=== PATIENT | female | born 1940 | race African-American/Black ===

== ENCOUNTER → 2017-05-05 | Outpatient (CLI) | payer OTHER, BC ==
[~2017-05-05] MED LIST: ASPIRIN325 PO; AUGMENTIN 875-1 EACH PO; AUGMENTIN 875875 MG PO; COLACE100 MG PO; COMPAZINE10 M1; COMPAZINE10 MG PO; DEXILANT60 MG PO; EFFEXOR75 MG; FENTANYL 1100 MCG/HR TRANSDERM; FENTANYL PA12 MCG/H1 TP; FISH OIL 1,001000 M2 PO; FLAGYL500 MG PO; FLEXERIL; FOLIC ACID1 MG; FOLIC ACID1 MG PO; HYDROXYCHLOROQ200 M1; IMURAN 50MG TAB50 M1 PO; LIDOCAINE 22 %/30 GM; MAGNESIUM OXID200 MG PO; MEGA MULTI FOR1 EACH PO; METHOTREXATE 22.5 M1 PO; MIRALAX17 GM PO; PHENERGAN25 MG RE; POTASSIUM20 PO; PREDNISOLON5 MG/5 ML; PROTONIX40 M2 PO; REFRESH CELLUVI1 APP OPHTHALMIC; REMICADE 1100 MG/VIA; TESSALON200 MG; TOBI PODHALER28 M1; TRIAMCINOLONE10 G1; TRIBENZOR 40-11 EAC1 PO; TYLENOL325 MG PO; VENLAFAXIN75 MG/1 T2 PO; VITAMIN D250000 UNIT PO; VOLTAREN75 MG; XANAX 0.25 MG0.25 MG; XANAX 0.25 MG0.25 MG PO
--- NOTE | ~2017-05-05 | S ---
[facility] [place] [address] SURGICAL PATH RPT PROCEDURE Name: BELEM VORA Room #: REG PATRICIA Gonzales.#: [id number] Admission: 05/05/17 Date of : 36 Discharge: Report #: [id number] Path Case #: [id number] PATHOLOGY REPORT COLLECTION DATE: 05/05/2017 RECEIVED DATE: 05/05/2017 SUBMITTING PHYS: Dr. Dudley Tyler OTHER PHYS: Dr. Dylan Chase SPECIMEN(S) RECEIVED: A.Small bowel B.Mid transverse colon polyp C.Random colon * * * * * * * * * * * * FINAL DIAGNOSIS: A. Small bowel mucosa, small bowel, endoscopic biopsy: - No diagnostic abnormalities present. B. Polyp, mid transverse colon, endoscopic biopsy: - Tubular adenoma. - Negative for high-grade dysplasia. C. Large intestinal mucosa, random colon, endoscopic biopsy: - Non-specific changes (please see comment). - Negative for dysplasia or malignancy. COMMENT: C. Examination shows a rare focus of cryptitis within an occasional crypt. The lamina propria cellularity is mixed with eosinophils, lymphocytes, as well as plasma cells. There is no increase in intraepithelial lymphocytes, or thickening of the subepithelial collagen layer present. There are no viral inclusions, granulomata, or parasitic organisms present. Overall findings are nonspecific, and may be due to a resolving acute self-limited episode of colitis, as well as medication induced colitis in addition to bowel preparation. Please correlate clinically. There is no dysplasia or malignancy present. (IUV:pit; 05/06/2017) PATHOLOGIST: Rayna Rosas M.D. REPORT ELECTRONICALLY SIGNED BY: Rayna Rosas M.D. DATE/TIME: 05/06/2017 13:15 * * * * * * * * * * * * GROSS PATHOLOGY: A. Received in formalin labeled "Belem Vora, BX small bowel," are 4 segments of chun soft tissue measuring 1.8 x 0.9 x 0.[address] [address] SURGICAL PATH RPT PROCEDURE Name: BELEM VORA Room #: REG [facility].#: [id number] Admission: 05/05/17 Date of : 36 Discharge: Report #: [id number] Path Case #: [id number] aggregate dimensions and ranging from 0.4 to 0.6 cm in maximum dimension. The specimen is submitted entirely in cassette A1. B. Received in formalin labeled "Belem Vora, polyp at mid transverse colon," is a segment of chun soft tissue measuring 0.3 cm in maximum dimension. The specimen is submitted entirely in cassette B1. C. Received in formalin labeled "Belem Vora, BX, random colon," are 6 segments of chun soft tissue measuring 1.6 x 0.9 x 0.3 cm in aggregate dimensions and ranging from 0.2 to 0.5 cm in maximum dimension. The specimen is submitted entirely in cassette C1. (TSD; 05/05/2017) CLINICAL HISTORY: Pre-OP DX: Dysphagia Post-OP DX: Gastritis, small hiatal hernia, esophageal ring, colon polyp, diarrhea INITIAL CPT CODE(S): A; 31464 B; 66547 C; 64940 Professional services performed by [facility] at [facility] [address], [place] [address] Technical services performed by [facility] at [address] [place] [address], [address], [place] [address]. [facility] [address] [place] [address] PHONE: [phone] DIRECTOR: Maxi Gonzalez M.D. * * * END OF REPORT * * *
--- NOTE | ~2017-05-05 | P ---
[facility] [place] [address] PROCEDURE REPORT Name: BELEM VORA [id number] Admission: 05/05/17 Attend Phys: Dudley Tyler MD Discharge: Date of : 38 Report #: [id number] THIS REPORT FOR: //name// CC: Dudley SAMSON BOX Dylan Box BRIEF HISTORY: The patient is a 76-year-old woman with chronic diarrhea. She also has had some vague upper abdominal pain, history of ulcer disease. In addition, she has recurrent solid food dysphagia. PREOPERATIVE DIAGNOSES: 1. Diarrhea. 2. Abdominal pain. 3. Dysphagia. POSTOPERATIVE DIAGNOSES: 1. Diffuse gastritis without ulcer. 2. Small hiatus hernia. 3. Proximal esophageal ring. MEDICATIONS: Deep sedation with propofol for anesthesia. SPECIMEN: Small bowel biopsies to rule out celiac disease. ESTIMATED BLOOD LOSS: 3 mL. PROCEDURE: EGD with biopsy and Sharp dilation. FINDINGS: Prior to propofol sedation, procedure of upper endoscopy was discussed with the patient as well as potential risks and its complications. She indicates she understands and desires to proceed. DESCRIPTION OF PROCEDURE: With the patient in left lateral decubitus position, the [employer] video endoscope was inserted in the cervical esophagus under direct vision without difficulty. Examination of this organ to its entire length revealed normal esophageal mucosa down to the squamocolumnar junction. The squamocolumnar junction was inspected and noted to be unremarkable. No ulcers or erosions were seen. No evidence of Quevedo's mucosa. No strictures or masses were seen. Intermittently, a 2 cm sliding type hiatus hernia was seen. Mucosa and hernia was normal. Scope was advanced in the stomach, was examined on end view as well as retroflexed views. She does have an erythematous antral gastritis. Previous biopsies were negative for H. pylori and they were not repeated today. No ulcers were seen today. Upon retroflexion, the hernia was seen, but no other abnormalities were identified. The pylorus, duodenal bulb and ____ sweep were inspected and noted to be within normal limits. Due to her diarrhea, multiples biopsies were obtained to evaluate for celiac disease. At [facility] [address] [place] [address] PROCEDURE REPORT Name: BELEM VORA Room #: REG [facility] Mirian#: [id number] Admission: 05/05/17 Attend Phys: Dudley Tyler MD Discharge: Date of : 38 Report #: [id number] that point, scope was withdrawn and careful circumferential views confirmed the above finding. Upon slow withdrawal of the scope in the proximal esophagus, a mild proximal esophageal ring was seen. We subsequently dilated with passage of 52-Wolof Sharp dilator. CONDITION OF THE PATIENT UPON DISCHARGE: Following procedure, the patient drowsy and prepared for flexible sigmoidoscopy. INSTRUCTIONS TO THE PATIENT AND FAMILY AT THE TIME OF DISCHARGE: She may use her Nexium as needed for control of reflux symptoms. We can dilate her on an as needed basis due to dysphagia and a ring. We will follow up on biopsies and make further recommendations. Proceed with flexible sigmoidoscopy and biopsy at this time. <ELECTRONICALLY SIGNED> By: Dudley Tyler MD 05/05/17 1902 [id number] 1104 Dudley Tyler MD /nt
--- NOTE | ~2017-05-05 | P ---
[facility] [place] [address] PROCEDURE REPORT Name: BELEM VORA Room #: REG [facility].#: [id number] Admission: 05/05/17 Attend Phys: Dudley Tyler MD Discharge: Date of : 38 Report #: [id number] THIS REPORT FOR: //name// CC: Dudley Chase MD BRIEF HISTORY: The patient is a 76-year-old woman with history of collagenous colitis with worsening diarrhea. PREOPERATIVE DIAGNOSIS: Recurrent diarrhea. POSTOPERATIVE DIAGNOSES: 1. Diminutive polyp, mid transverse colon. 2. Diarrhea. MEDICATIONS: Deep sedation with propofol per anesthesia. SPECIMENS: 1. Polyp from mid ascending colon. 2. Random biopsy of the colon to rule out colitis. ESTIMATED BLOOD LOSS: 3 mL. PROCEDURE: Flexible sigmoidoscopy to mid transverse colon with biopsy. FINDINGS: Prior to propofol sedation, the procedure of flexible sigmoidoscopy discussed with the patient as well as potential risks, benefits, and complications. She indicates she understands and desires to proceed. With the patient in left lateral decubitus position, digital examination was completed, which revealed without abnormalities. Subsequently, [employer] video colonoscope was introduced in the rectum and advanced under direct vision. The scope was advanced to what I believe was the mid transverse colon. Our intentions today were to take biopsies to evaluate for her diarrhea. In the mid transverse colon, a diminutive polyp was seen and removed by biopsy. At that point, the scope was slowly withdrawn and careful circumferential views were obtained. The patient did not do a complete colon prep and therefore, the prep was limited and there were pools of liquid stool around. Additional polyps could not be totally excluded because of prep limitations. However, the prep was adequate for our intentions today, which is to obtain biopsies to evaluate for microscopic colitis. Multiple areas of mucosa were seen and visualized and noted to be within normal limits. Inflammatory changes were not seen. Multiple random biopsies were obtained. Scope was withdrawn in the rectum. Upon retroflexion, no abnormalities were seen. Scope was withdrawn. The patient tolerated the procedure well. [address] [address] PROCEDURE REPORT Name: DIONYBELEM Room #: REG [facility].#: [id number] Admission: 05/05/17 Attend Phys: Dudley Tyler MD Discharge: Date of : 36 Report #: [id number] CONDITION OF THE PATIENT UPON DISCHARGE: Following procedure, the patient drowsy and will be discharged home when fully ambulatory. INSTRUCTIONS TO THE PATIENT AND FAMILY AT THE TIME OF DISCHARGE: No inflammatory changes were seen. We will follow up on the path report and make further recommendations. Since this was not a complete exam and her last full colon was done about 2 years ago, I would have her return in 3 years for followup colonoscopy. We will follow up on biopsies obtained today and make further recommendations as needed. <ELECTRONICALLY SIGNED> By: Dudley Tyler MD 05/05/17 1902 [id number] [id number] Dudley Tyler MD /laly
== END | disposition home or self-care (01) ==
LOC: GI 07:58
DX: K52.831 Collagenous colitis (principal); D12.3 Benign neoplasm of transverse colon; K29.70 Gastritis, unspecified, without bleeding; K44.9 Diaphragmatic hernia without obstruction or gangrene; K22.2 Esophageal obstruction

== ENCOUNTER 2017-05-18 18:20 | Emergency (ER) | payer OTHER, BC ==
[~2017-05-18] VITALS: Ht 160 cm; Wt 58.5 kg
[2017-05-18 19:38] LABS: HEMOGLOBIN 10.8 gm/dL (12.0-15.0); MCH 25.4 pg (26.0-34.0); MCHC 32.7 g/dL (28.0-37.0); MCV 77.5 fL (80.0-100.0); RBC 4.25 mil/uL (4.20-5.00); RDW 15.5 % (10.5-14.5); WBC 3.9 thou/uL (4.0-11.0)
[2017-05-18 19:45] LABS: CALCIUM 9.6 mg/dL (8.5-10.1); CREATININE 1.1 mg/dL (0.6-1.0); POTASSIUM 3.6 mmol/L (3.5-5.1)
[2017-05-18 20:01] VITALS: BP 165/76
== END 2017-05-18 20:00 | disposition home or self-care (01) ==
LOC: ER 18:20
PROVIDERS: Emergency Medicine
DX: N93.9 Abnormal uterine and vaginal bleeding, unspecified (principal); I10 Essential (primary) hypertension; M06.9 Rheumatoid arthritis, unspecified; Z86.73 Personal history of transient ischemic attack (TIA), and cerebral infarction without residual deficits; Z88.1 Allergy status to other antibiotic agents; Z88.5 Allergy status to narcotic agent; Z88.2 Allergy status to sulfonamides; Z88.8 Allergy status to other drugs, medicaments and biological substances

== ENCOUNTER → 2019-05-05 | Outpatient (CLI) | payer OTHER, BC ==
[~2019-05-05] VITALS: Ht 165.1 cm; Wt 61.2 kg
[~2019-05-05] MED LIST changes: +BENICAR20 MG PO; +BENZONATATE200 MG PO; +DULOXETINE HCL60 MG PO; +EFFEXOR XR150 MG PO; +FUROSEMIDE 20 M20 MG PO; +HYDROCODON-ACE1 EAC8 PO; +KLOR-CON-EF 2525 ME1 PO; +MICROZIDE12.5 MG PO; +OLMSRTN-AMLDPN1 EACH PO; +PERIDEX15 ML PO; -POTASSIUM20 PO; +PREDNISONE ACETATE OPHTHALMIC; +PROAIR DIGIHAL90 MCG INH; +REMICADE 1100 MG/VIA IV; +VOLTAREN GEL 1100 G1 TOP
[2019-05-05 08:28] VITALS: BP 129/70
--- NOTE | 2019-05-05 09:06 | NUR ---
Pain Clinic Assessment: 1. History of Osteoarthritis: NONE History of Rheumatoid Arthritis: B/L HANDS 2. Height: 5 ft. 5 in. 165.1 cm. Weight: 135.0 lb. oz. 61.236 kg. Patient's BMI: 22.5 3. Vital Signs: BP: 129/70 Pulse: 80 Resp: 14 Temp: 02 Sat: 100 ECG Mon: 4. Pain Intensity: 10 5. Fall Risk: Dizziness: Y Needs help standing or walking: Y Fallen in the last 3 months: N Fall risk comments: 6. Patient on Blood Thinner: None 7. History of Hypertension: Y 8. Opioid Therapy greater than 6 weeks: Opiate Contract Signed: 9. Risk Assessment Tool Provided: LOW 10. Functional Assessment Tool: / 11. Recreational Drug Use: Never Drug Type: Tobacco Use: Never Smoker Tobacco Type: Amount or Packs/day: How Many Years: Alcohol Use: No Frequency: Quant:
--- NOTE | 2019-05-10 19:28 | HPC ---
[facility] [place] [address] [place] [address] PAIN MANAGEMENT CONSULTATION Name: BELEM VORA Room #: REG PATRICIA Gonzales.#: [id number] Admission: 05/05/19 Attend Phys: Joy Isaac MD Discharge: Date of : 36 Report #: [id number] THIS REPORT FOR: //name// CC: Dylan Isaac DATE OF SERVICE: 05/05/2019 PRIMARY CARE PHYSICIAN: Dylan Chase MD CHIEF COMPLAINT: Left leg pain. "I have had epidural injections in the past." HISTORY: The patient is an 78-year-old female who has been referred to the pain clinic for evaluation of back and leg pain. States that she has had problems with her back and has undergone epidural steroid injections in the past. She notes that over the past month, she has had a worsening of pain and discomfort. Epidural steroid injections have been beneficial. She has been having more pain. She is having difficulty walking, difficulty with sleep. The left side is most problematic. She awakens from sleep. She is having pain that radiates down into the feet. The left side is most problematic. The patient has a history of rheumatoid arthritis. She does receive infliximab infusions. The patient has received epidural steroid injections from another physician. He has moved. The distance has gotten too great. She would like to follow up here at [facility]. ALLERGIES: CODEINE. CURRENT MEDICATIONS: Dexilant 60 mg, mwnjuwcdvf-cgdtzhfomg-pjgv 20/5/12.5, hydrocodone 7.5 mg q. 6 hours p.r.n., Lasix 20 mg, Duloxetine 60 mg, Remicade 100 mg intravenous as instructed, prednisone ophthalmic drops 4 times daily, Voltaren gel 1% 4 times daily to the affected areas, Effexor XR 150 mg, Compazine 10 mg 4 times daily p.r.n., albuterol inhaler p.r.n. shortness of breath, ophthalmic drops Refresh Celluvisc as needed, folic acid 1 mg, Imuran 50 mg b.i.d., alprazolam 0.25 mg t.i.d. p.r.n., vitamin D 50,000 units weekly, Klor-Con, EF 20 mEq. PAST MEDICAL HISTORY: Hypertension, CVA in 2008, acid reflux, rheumatoid arthritis. PAST SURGICAL HISTORY: The patient has had surgery on her hands as well as surgery on her feet. SOCIAL HISTORY: She is retired, she is . REVIEW OF SYSTEMS: Generally good health, headaches, chronic sinus problems, shortness of breath, loss of appetite, peptic ulcer, fatigue and weakness, [address] [address] PAIN MANAGEMENT CONSULTATION Name: BELEM VORA Room #: REG Flavia Vela#: [id number] Admission: 05/05/19 Attend Phys: Joy Isaac MD Discharge: Date of : 36 Report #: [id number] stroke, memory loss/confusion, nervousness, depression, insomnia, anemia. LABORATORY DATA: No new laboratory values are available at the time of our interview. PAIN CLINIC ASSESSMENT AND PQRS: 1. History of osteoarthritis. The patient is not being treated for osteoarthritis. She is being treated for rheumatoid arthritis, which is problematic in both hands and swelling in her feet. 2. Height 5 feet 5 inches, weight 135 pounds, BMI is 22.5. 3. Vital signs: Blood pressure 129/70, pulse 80, respiratory rate 14, room air saturation is 100%. 4. Pain intensity 03/18. 5. Fall risk. The patient has not fallen in the last 3 months. 6. Blood thinner. The patient is not on a blood thinning medication. 7. Hypertension. The patient is being treated for hypertension. 8. Opioids greater than 6 weeks. The patient received medication from one source, pain clinic. 9. Risk assessment tool, low. 10. Functional assessment tool, 56/70. 11. Recreational drug use: The patient denies. 12. Tobacco: The patient has never smoked. 13. Alcohol. The patient denies use of alcoholic beverages. PHYSICAL EXAMINATION: GENERAL: The patient is a well-developed, well-nourished black female. She is alert and oriented x 3. Her affect is appropriate. Speech is fluent. HEENT: Normocephalic. HEART: Regular. ABDOMEN: Nontender. LUNGS: Generally clear to auscultation. ABDOMEN: Nontender. EXTREMITIES: Upper extremity muscle strength judged to be 4+/5 for the major muscle groups in the upper extremity. The patient has pain and discomfort in lower portion of her back with pain radiating down the posterior portion of her legs in the L5-S1 dermatomal distribution. The patient notes that her pain is primarily on the left side. Does walk with a cane. States that she has been using the cane for a few weeks. She is accompanied by her ex-. IMPRESSION: 1. Lumbar radiculopathy, L5-S1 dermatomal distribution. 2. Hypertension. 3. Cerebrovascular accident in 2008. 4. Acid reflux. 5. Rheumatoid arthritis. [facility] [address] [place] [address] PAIN MANAGEMENT CONSULTATION Name: BELEM VORA Room #: BASIL Vela#: [id number] Admission: 05/05/19 Attend Phys: Joy Isaac MD Discharge: Date of : 36 Report #: [id number] RECOMMENDATIONS: We discussed treatment options with the patient. Risks and benefits of an epidural steroid injection were discussed. They include but are not limited to infection, worsening pain, no improvement in pain, increased muscle soreness, headache, bleeding and the patient elects to proceed. PROCEDURE NOTE: The patient was taken to the procedure area. She was then assisted in getting on the examination table. Her back was sterilely prepped with a Betadine solution. Fluoroscopy using anterior, posterior as well as lateral viewing were implemented. A 17-gauge Tuohy with loss of resistance technique was used to gain access to the epidural space at the L5-S1 area. This area had been anesthetized using a 25-gauge needle and 0.25% bupivacaine. A total of 80 mg Depo-Medrol, 40 mg triamcinolone and 2 mL of 0.25% bupivacaine was injected. The patient tolerated the procedure well. There were no complications. She remained in the Pain Clinic for an appropriate amount of time. She will follow up in the future as needed. We would like to thank you for letting us participate in her care. We hope she continues to improve. <ELECTRONICALLY SIGNED> By: Joy Isaac MD 05/10/19 1928 1243 1550 Joy Isaac MD /PMT
== END | disposition home or self-care (01) ==
LOC: PAIN 06:41
DX: M54.16 Radiculopathy, lumbar region (principal); I10 Essential (primary) hypertension; K21.9 Gastro-esophageal reflux disease without esophagitis; M06.9 Rheumatoid arthritis, unspecified; Z86.73 Personal history of transient ischemic attack (TIA), and cerebral infarction without residual deficits; Z88.8 Allergy status to other drugs, medicaments and biological substances; Z79.899 Other long term (current) drug therapy

== ENCOUNTER 2019-05-29 13:42 | Emergency (ER) | payer OTHER, BC ==
[~2019-05-29] VITALS: Ht 162.6 cm; Wt 63.5 kg
[2019-05-29 17:44] VITALS: BP 140/69
== END 2019-05-29 17:40 | disposition home or self-care (01) ==
LOC: ER 13:42
DX: T21.22XA Burn of second degree of abdominal wall, initial encounter (principal); M06.9 Rheumatoid arthritis, unspecified; M54.9 Dorsalgia, unspecified; G89.29 Other chronic pain; Z88.1 Allergy status to other antibiotic agents; Z88.6 Allergy status to analgesic agent; Z88.8 Allergy status to other drugs, medicaments and biological substances; X08.8XXA Exposure to other specified smoke, fire and flames, initial encounter; Y93.G3 Activity, cooking and baking; Y92.89 Other specified places as the place of occurrence of the external cause; Y99.8 Other external cause status